=== PATIENT | male | born 1985 | race Caucasian/White ===

== ENCOUNTER 2018-12-13 16:57 | Emergency (ER) | payer SELFPAY ==
[~2018-12-13] VITALS: Ht 172.7 cm; Wt 77.1 kg
[2018-12-13 17:07] VITALS: BP_SYST 113
[2018-12-13] MEDS ORDERED: DICYCLOMINE HCL 10 MG/5 ML SOLUTION PO ONE (17:30)
[2018-12-13] MEDS ORDERED: MAG-AL HYDROX/SIMETH 30 ML UDC PO ONE (17:30)
[2018-12-13] MEDS ORDERED: LIDOCAINE VISCOUS 2%, 15 ML UDC MM ONE (17:30)
[2018-12-13 18:26] VITALS: BP_SYST 110
== END 2018-12-13 18:26 | disposition home or self-care (01) ==
LOC: SED 16:57
DX: K29.70 Gastritis, unspecified, without bleeding (principal); F31.9 Bipolar disorder, unspecified; F41.9 Anxiety disorder, unspecified; Z86.19 Personal history of other infectious and parasitic diseases; Z90.49 Acquired absence of other specified parts of digestive tract
CPT/HCPCS: 99284; J2001; 99283